=== PATIENT | male | born 1945 | race Caucasian/White ===

== ENCOUNTER 2023-03-23 14:54 | Outpatient (CLI) | payer MEDICARE, BC | END 2023-03-23 14:55 | disposition home or self-care (01) | LOC: CSHULT 14:54 | PROVIDERS: ATTEND Orthopaedic Surgery | DX: M79.604 Pain in right leg (principal); M79.605 Pain in left leg | CPT/HCPCS: 93970 ==

== ENCOUNTER 2023-05-05 09:43 | Outpatient (CLI) | payer MEDICARE | END 2023-05-05 09:44 | disposition home or self-care (01) | LOC: CSHWCC 09:43 | PROVIDERS: ATTEND Nurse Practitioner Family | DX: L89.624 Pressure ulcer of left heel, stage 4 (principal); R60.0 Localized edema; L24.A0 Irritant contact dermatitis due to friction or contact with body fluids, unspecified | CPT/HCPCS: 11042 ==

== ENCOUNTER 2023-06-09 11:13 | Outpatient (CLI) | payer MEDICARE | END 2023-06-09 11:14 | disposition home or self-care (01) | LOC: CSHWCC 11:13 | PROVIDERS: ATTEND Nurse Practitioner Family | DX: L89.624 Pressure ulcer of left heel, stage 4 (principal); R60.9 Edema, unspecified; L24.A0 Irritant contact dermatitis due to friction or contact with body fluids, unspecified | CPT/HCPCS: 11043 ==

== ENCOUNTER 2023-06-23 11:09 | Outpatient (CLI) | payer MEDICARE | END 2023-06-23 11:10 | disposition home or self-care (01) | LOC: CSHWCC 11:09 | PROVIDERS: ATTEND Nurse Practitioner Family | DX: L89.624 Pressure ulcer of left heel, stage 4 (principal); L24.A0 Irritant contact dermatitis due to friction or contact with body fluids, unspecified; R60.0 Localized edema ==

== ENCOUNTER 2023-07-07 11:16 | Outpatient (CLI) | payer MEDICARE | END 2023-07-07 11:17 | disposition home or self-care (01) | LOC: CSHWCC 11:16 | PROVIDERS: ATTEND Nurse Practitioner Family | DX: L89.624 Pressure ulcer of left heel, stage 4 (principal); R60.0 Localized edema | CPT/HCPCS: 11043; 97605 ==

== ENCOUNTER 2023-07-21 13:04 | Outpatient (CLI) | payer MEDICARE, BC | END 2023-07-21 13:05 | disposition home or self-care (01) | LOC: CSHWCC 13:04 | PROVIDERS: ATTEND Nurse Practitioner Family | DX: R60.9 Edema, unspecified (principal); L89.624 Pressure ulcer of left heel, stage 4 | CPT/HCPCS: 11042; 97605 ==

== ENCOUNTER 2023-08-04 14:58 | Outpatient (CLI) | payer MEDICARE | END 2023-08-04 14:59 | disposition home or self-care (01) | LOC: CSHWCC 14:58 | PROVIDERS: ATTEND Nurse Practitioner Family | DX: L89.624 Pressure ulcer of left heel, stage 4 (principal); R60.0 Localized edema | CPT/HCPCS: 97605 ==

== ENCOUNTER 2023-09-21 13:47 | Outpatient (CLI) | payer MEDICARE | END 2023-09-21 13:48 | disposition home or self-care (01) | LOC: CSHWCC 13:47 | PROVIDERS: ATTEND Physician Assistant | DX: L89.603 Pressure ulcer of unspecified heel, stage 3 (principal) | CPT/HCPCS: 97602 ==

== ENCOUNTER 2023-10-07 13:09 | Outpatient (CLI) | payer MEDICARE | END 2023-10-07 13:10 | disposition home or self-care (01) | LOC: CSHWCC 13:09 | PROVIDERS: ATTEND Physician Assistant | DX: L89.624 Pressure ulcer of left heel, stage 4 (principal) | CPT/HCPCS: 97597 ==

== ENCOUNTER 2023-10-27 13:14 | Outpatient (CLI) | payer MEDICARE | END 2023-10-27 13:15 | disposition home or self-care (01) | LOC: CSHWCC 13:14 | PROVIDERS: ATTEND Physician Assistant | DX: L89.624 Pressure ulcer of left heel, stage 4 (principal) | CPT/HCPCS: 97597 ==

== ENCOUNTER 2024-11-17 12:58 | Inpatient (IN) | payer MEDICARE ==
[2024-11-17] MEDS ORDERED: Famotidine/PF 20 mg/2ml Vial ONE (14:14)
[2024-11-17] MEDS ORDERED: methylPREDNISolone Sod Succ/PF 125 MG/2 ML VIAL ONE (14:14)
[2024-11-17 14:51] LABS: ALT (SGPT) 16 U/L (8-55); AST (SGOT) 18 U/L (5-34); Albumin 3.5 g/dL (3.4-4.8); Alkaline Phosphatase 83 U/L (40-110); Anion Gap 10 mmol/L (10-20); BUN (Urea Nitrogen) 22 mg/dL (8.4-25.7); Bilirubin, Total 0.4 mg/dL (0.2-1.2); Calc. Creatinine Clearance 0 mL/min (70-130); Calcium 9.6 mg/dL (7.8-10.44); Carbon Dioxide 26 mmol/L (23-31); Chloride 107 mmol/L (98-107); Estimated GFR 87; Globulin 3.1 g/dL (2.4-3.5); Glucose 85 mg/dL (83-110); Potassium 4.1 mmol/L (3.5-5.1); Protein, Total 6.6 g/dL (5.8-8.1); Sodium 139 mmol/L (136-145)
[2024-11-17] MEDS ORDERED: Piperacillin/Tazobactam 4.5 GM VIAL ONE (14:54)
[2024-11-17 15:17] LABS: #Basophils 0.07 10x3/uL (0.0-0.2); #Eosinophils 0.16 10x3/uL (0.0-0.5); #Monocytes 0.76 10x3/uL (0.0-1.1); #Neutrophils 10.41 10x3/uL (1.5-8.4); %Basophils 0.6 % (0.0-2.0); %Eosinophils 1.3 % (0.0-6.0); %Lymphocytes 7.1 % (18.0-47.0); %Monocytes 6.2 % (0.0-10.0); %Neutrophils 84.3 % (40.0-75.0); Hematocrit 33.5 % (38.8-50.0); Hemoglobin 11.7 g/dL (13.5-17.5); Mean Corpuscular HGB CONC 34.9 g/dL (32.0-36.0); Mean Corpuscular Hemoglobin 40.6 pg (27.0-33.0); Mean Corpuscular Volume 116.3 fL (81.2-95.1); Mean Platelet Volume 9.8 fL (7.4-10.4); Platelet Count 408 10x3/uL (150-450); RBC Distribution Width 14.1 % (11.5-14.5); Red Blood Cell (RBC) Count 2.88 10x6/uL (4.32-5.72); White Blood Cell (WBC) Count 12.3 10x3/uL (3.5-10.5)
[2024-11-17 18:33] VITALS: BMI 21.1
[2024-11-17] MEDS ORDERED: diphenhydrAMINE 25 MG CAP PO PRN (20:07)
[2024-11-17] MEDS ORDERED: Ondansetron ODT 4 MG TAB PO PRN (20:07)
[2024-11-17] MEDS ORDERED: Ondansetron PF 4 MG/2 ML Vial IVP PRN (20:07)
[2024-11-17] MEDS: Vancomycin HCl 125 MG Capsule PO SCH (21:21)
[2024-11-17] MEDS: Apixaban 5 MG TAB PO SCH (21:21)
[2024-11-17] MEDS: Acetaminophen 500 MG TAB PO SCH (21:22)
[2024-11-17] MEDS: diphenhydrAMINE 25 MG CAP PO SCH (21:22)
[2024-11-17] MEDS: Piperacillin/Tazobactam 3.375 GM in Sodium Chloride 0.9% 100 ML IVPB SCH (21:23)
[2024-11-17] MEDS: Hydroxyurea 500 MG CAP PO SCH (23:29)
[2024-11-17] MEDS: Clotrimazole 1% Cream 15 GM TUBE TOP SCH (23:46)
[2024-11-18] MEDS: Acetaminophen 325 MG TAB PO PRN (05:01)
[2024-11-18 05:37] LABS: Anion Gap 13 mmol/L (10-20); BUN (Urea Nitrogen) 21 mg/dL (8.4-25.7); Calc. Creatinine Clearance 59 mL/min (70-130); Calcium 9.4 mg/dL (7.8-10.44); Carbon Dioxide 23 mmol/L (23-31); Chloride 107 mmol/L (98-107); Estimated GFR 82; Glucose 138 mg/dL (83-110); Potassium 4.4 mmol/L (3.5-5.1); Sodium 139 mmol/L (136-145)
[2024-11-18 05:55] LABS: #Basophils 0.07 10x3/uL (0.0-0.2); #Eosinophils 0.01 10x3/uL (0.0-0.5); #Monocytes 0.44 10x3/uL (0.0-1.1); #Neutrophils 15.51 10x3/uL (1.5-8.4); %Basophils 0.4 % (0.0-2.0); %Eosinophils 0.1 % (0.0-6.0); %Lymphocytes 3.1 % (18.0-47.0); %Monocytes 2.6 % (0.0-10.0); Hematocrit 34.6 % (38.8-50.0); Hemoglobin 11.7 g/dL (13.5-17.5); Mean Corpuscular HGB CONC 33.8 g/dL (32.0-36.0); Mean Corpuscular Hemoglobin 38.5 pg (27.0-33.0); Mean Corpuscular Volume 113.8 fL (81.2-95.1); Mean Platelet Volume 9.8 fL (7.4-10.4); Platelet Count 442 10x3/uL (150-450); RBC Distribution Width 13.6 % (11.5-14.5); Red Blood Cell (RBC) Count 3.04 10x6/uL (4.32-5.72); White Blood Cell (WBC) Count 16.7 10x3/uL (3.5-10.5)
[2024-11-18] MEDS: Floranex 1 GM Packet PO SCH (09:16)
[2024-11-18] MEDS: Losartan 50 MG TAB PO SCH (09:17)
[2024-11-18] MEDS: Folic Acid 1 MG TAB PO SCH (09:18)
[2024-11-18] MEDS: Amlodipine 5 MG TAB PO SCH (09:18)
[2024-11-18] MEDS: Docusate 100 MG CAP PO SCH (09:18)
[2024-11-18] MEDS: Multivitamin W/ Minerals 1 TAB PO SCH (09:18)
[2024-11-18] MEDS: diphenhydrAMINE 25 MG CAP PO PRN (17:13)
[2024-11-19] MEDS: [UNRECOGNIZED DRUG - OTHER] PO SCH (07:30)
[2024-11-19] MEDS: IRON PS COMPLEX PO SCH (07:30)
[2024-11-19] MEDS: B12 PO SCH (07:30)
[2024-11-19 09:38] LABS: #Basophils 0.04 10x3/uL (0.0-0.2); #Eosinophils 0.31 10x3/uL (0.0-0.5); #Monocytes 0.74 10x3/uL (0.0-1.1); #Neutrophils 9.64 10x3/uL (1.5-8.4); %Basophils 0.3 % (0.0-2.0); %Eosinophils 2.6 % (0.0-6.0); %Lymphocytes 10.7 % (18.0-47.0); %Monocytes 6.1 % (0.0-10.0); %Neutrophils 79.6 % (40.0-75.0); Hematocrit 32.5 % (38.8-50.0); Hemoglobin 10.8 g/dL (13.5-17.5); Mean Corpuscular HGB CONC 33.2 g/dL (32.0-36.0); Mean Corpuscular Hemoglobin 38.7 pg (27.0-33.0); Mean Corpuscular Volume 116.5 fL (81.2-95.1); Mean Platelet Volume 9.6 fL (7.4-10.4); Platelet Count 355 10x3/uL (150-450); RBC Distribution Width 14.1 % (11.5-14.5); Red Blood Cell (RBC) Count 2.79 10x6/uL (4.32-5.72); White Blood Cell (WBC) Count 12.1 10x3/uL (3.5-10.5)
[2024-11-19 09:49] LABS: Anion Gap 13 mmol/L (10-20); BUN (Urea Nitrogen) 23 mg/dL (8.4-25.7); Calc. Creatinine Clearance 45 mL/min (70-130); Calcium 9.1 mg/dL (7.8-10.44); Carbon Dioxide 21 mmol/L (23-31); Chloride 106 mmol/L (98-107); Estimated GFR 59; Glucose 128 mg/dL (83-110); Potassium 4.4 mmol/L (3.5-5.1); Sodium 136 mmol/L (136-145)
[2024-11-19 15:02] VITALS: BMI 21.1
[2024-11-20 04:53] LABS: #Basophils 0.07 10x3/uL (0.0-0.2); #Eosinophils 0.27 10x3/uL (0.0-0.5); #Neutrophils 6.65 10x3/uL (1.5-8.4); %Basophils 0.8 % (0.0-2.0); %Eosinophils 2.9 % (0.0-6.0); %Lymphocytes 16.1 % (18.0-47.0); %Monocytes 7.6 % (0.0-10.0); %Neutrophils 71.8 % (40.0-75.0); Hematocrit 30.8 % (38.8-50.0); Hemoglobin 10.5 g/dL (13.5-17.5); Mean Corpuscular HGB CONC 34.1 g/dL (32.0-36.0); Mean Corpuscular Hemoglobin 39.3 pg (27.0-33.0); Mean Corpuscular Volume 115.4 fL (81.2-95.1); Mean Platelet Volume 9.6 fL (7.4-10.4); Platelet Count 326 10x3/uL (150-450); Red Blood Cell (RBC) Count 2.67 10x6/uL (4.32-5.72); White Blood Cell (WBC) Count 9.3 10x3/uL (3.5-10.5)
[2024-11-20 05:05] LABS: Anion Gap 12 mmol/L (10-20); BUN (Urea Nitrogen) 22 mg/dL (8.4-25.7); Calc. Creatinine Clearance 57 mL/min (70-130); Calcium 9.1 mg/dL (7.8-10.44); Carbon Dioxide 23 mmol/L (23-31); Chloride 109 mmol/L (98-107); Estimated GFR 78; Glucose 90 mg/dL (83-110); Potassium 4.1 mmol/L (3.5-5.1); Sodium 140 mmol/L (136-145)
[2024-11-21 04:24] LABS: Anion Gap 14 mmol/L (10-20); BUN (Urea Nitrogen) 21 mg/dL (8.4-25.7); Calc. Creatinine Clearance 60 mL/min (70-130); Calcium 9.1 mg/dL (7.8-10.44); Carbon Dioxide 22 mmol/L (23-31); Chloride 109 mmol/L (98-107); Estimated GFR 83; Glucose 84 mg/dL (83-110); Potassium 4.2 mmol/L (3.5-5.1); Sodium 141 mmol/L (136-145)
[2024-11-21 04:48] LABS: #Basophils 0.08 10x3/uL (0.0-0.2); #Eosinophils 0.22 10x3/uL (0.0-0.5); #Monocytes 0.73 10x3/uL (0.0-1.1); #Neutrophils 7.21 10x3/uL (1.5-8.4); %Basophils 0.8 % (0.0-2.0); %Eosinophils 2.2 % (0.0-6.0); %Lymphocytes 17.3 % (18.0-47.0); %Monocytes 7.3 % (0.0-10.0); %Neutrophils 71.6 % (40.0-75.0); Hemoglobin 10.7 g/dL (13.5-17.5); Mean Corpuscular HGB CONC 34.5 g/dL (32.0-36.0); Mean Corpuscular Hemoglobin 39.9 pg (27.0-33.0); Mean Corpuscular Volume 115.7 fL (81.2-95.1); Mean Platelet Volume 9.9 fL (7.4-10.4); Platelet Count 372 10x3/uL (150-450); Red Blood Cell (RBC) Count 2.68 10x6/uL (4.32-5.72); White Blood Cell (WBC) Count 10.1 10x3/uL (3.5-10.5)
[2024-11-21] MEDS: HYDROcodone/Acetaminophen 10/325 mg Tablet PO PRN (12:29)
[2024-11-22 04:33] LABS: #Basophils 0.08 10x3/uL (0.0-0.2); #Eosinophils 0.16 10x3/uL (0.0-0.5); #Neutrophils 7.34 10x3/uL (1.5-8.4); %Basophils 0.8 % (0.0-2.0); %Eosinophils 1.6 % (0.0-6.0); %Lymphocytes 14.4 % (18.0-47.0); %Monocytes 7.2 % (0.0-10.0); %Neutrophils 75.5 % (40.0-75.0); Hematocrit 30.7 % (38.8-50.0); Hemoglobin 10.6 g/dL (13.5-17.5); Mean Corpuscular HGB CONC 34.5 g/dL (32.0-36.0); Mean Corpuscular Volume 115.8 fL (81.2-95.1); Mean Platelet Volume 9.8 fL (7.4-10.4); Platelet Count 347 10x3/uL (150-450); RBC Distribution Width 14.3 % (11.5-14.5); Red Blood Cell (RBC) Count 2.65 10x6/uL (4.32-5.72); White Blood Cell (WBC) Count 9.7 10x3/uL (3.5-10.5)
[2024-11-22 04:44] LABS: Anion Gap 14 mmol/L (10-20); BUN (Urea Nitrogen) 20 mg/dL (8.4-25.7); Calc. Creatinine Clearance 58 mL/min (70-130); Calcium 9.2 mg/dL (7.8-10.44); Carbon Dioxide 22 mmol/L (23-31); Chloride 109 mmol/L (98-107); Estimated GFR 80; Glucose 85 mg/dL (83-110); Sodium 141 mmol/L (136-145)
[2024-11-22] MEDS: FLU (Fluad Triv) TS24-25 (65UP)/MF59C/PF 45 MCG/0.5 ML Syringe IM ONE (10:15)
[2024-11-22] MEDS: Loperamide HCl 2 MG CAP PO PRN (14:54)
[2024-11-22] MEDS: Pantoprazole DR 40 MG TAB PO SCH (21:59)
[2024-11-23 04:06] LABS: #Basophils 0.09 10x3/uL (0.0-0.2); #Eosinophils 0.15 10x3/uL (0.0-0.5); #Monocytes 0.67 10x3/uL (0.0-1.1); %Eosinophils 1.6 % (0.0-6.0); %Lymphocytes 17.1 % (18.0-47.0); %Monocytes 7.3 % (0.0-10.0); %Neutrophils 72.5 % (40.0-75.0); Hematocrit 30.5 % (38.8-50.0); Hemoglobin 10.2 g/dL (13.5-17.5); Mean Corpuscular HGB CONC 33.4 g/dL (32.0-36.0); Mean Corpuscular Hemoglobin 38.8 pg (27.0-33.0); Mean Platelet Volume 9.6 fL (7.4-10.4); Platelet Count 342 10x3/uL (150-450); RBC Distribution Width 13.9 % (11.5-14.5); Red Blood Cell (RBC) Count 2.63 10x6/uL (4.32-5.72); White Blood Cell (WBC) Count 9.1 10x3/uL (3.5-10.5)
[2024-11-23 04:19] LABS: Anion Gap 12 mmol/L (10-20); BUN (Urea Nitrogen) 17 mg/dL (8.4-25.7); Calc. Creatinine Clearance 63 mL/min (70-130); Carbon Dioxide 22 mmol/L (23-31); Chloride 109 mmol/L (98-107); Estimated GFR 87; Glucose 86 mg/dL (83-110); Potassium 3.9 mmol/L (3.5-5.1); Sodium 139 mmol/L (136-145)
[2024-11-23] MEDS: Cholestyramine/Aspartame 4 gm Packet PO SCH (04:52)
[2024-11-23 12:16] VITALS: BP 133/61; TEMP 98.9
== END 2024-11-23 18:19 | disposition home or self-care (01) | DRG 607 ==
LOC: CSHERS 12:58 → CSHTELE 17:17 → OBSVTOIN 11-19 09:54
PROVIDERS: ADMIT Internal Medicine; ATTEND Internal Medicine
DX: R21 Rash and other nonspecific skin eruption (principal); D68.59 Other primary thrombophilia; Z96.652 Presence of left artificial knee joint; B35.6 Tinea cruris; Z74.09 Other reduced mobility; I27.20 Pulmonary hypertension, unspecified; D69.1 Qualitative platelet defects; Z96.659 Presence of unspecified artificial knee joint; N40.0 Benign prostatic hyperplasia without lower urinary tract symptoms; T36.1X5A Adverse effect of cephalosporins and other beta-lactam antibiotics, initial encounter; D53.9 Nutritional anemia, unspecified; Z85.46 Personal history of malignant neoplasm of prostate; Z79.01 Long term (current) use of anticoagulants; Z86.711 Personal history of pulmonary embolism; Z99.3 Dependence on wheelchair; Z86.19 Personal history of other infectious and parasitic diseases; Z86.73 Personal history of transient ischemic attack (TIA), and cerebral infarction without residual deficits
CPT/HCPCS: 36415; 76937; 80048; 80053; 82607; 83735; 85025; 86140; 96365; 96375; 96376; 97139; G0378; J2543; J2919; J3490

== ENCOUNTER 2025-01-10 16:25 | Outpatient (CLI) | payer MEDICARE | END 2025-01-10 16:26 | disposition home or self-care (01) | LOC: CSHWCC 16:25 | PROVIDERS: ATTEND Nurse Practitioner Family | DX: L89.523 Pressure ulcer of left ankle, stage 3 (principal) | CPT/HCPCS: 11042; 11045; 87070; 87077; 87186; 87205; 99212; G0463 ==

== ENCOUNTER 2025-06-13 14:44 | Outpatient (CLI) | payer MEDICARE | END 2025-06-13 14:45 | disposition home or self-care (01) | LOC: CSHWCC 14:44 | PROVIDERS: ATTEND Nurse Practitioner Family | DX: I87.312 Chronic venous hypertension (idiopathic) with ulcer of left lower extremity (principal); L97.322 Non-pressure chronic ulcer of left ankle with fat layer exposed; R26.2 Difficulty in walking, not elsewhere classified; Z89.522 Acquired absence of left knee | CPT/HCPCS: 11042; G0463; 99212 ==

== ENCOUNTER 2025-06-20 15:16 | Outpatient (CLI) | payer MEDICARE | END 2025-06-20 15:17 | disposition home or self-care (01) | LOC: CSHWCC 15:16 | PROVIDERS: ATTEND Nurse Practitioner Family | DX: I87.312 Chronic venous hypertension (idiopathic) with ulcer of left lower extremity (principal); L97.322 Non-pressure chronic ulcer of left ankle with fat layer exposed; R26.2 Difficulty in walking, not elsewhere classified; Z89.522 Acquired absence of left knee | CPT/HCPCS: 11042 ==

== ENCOUNTER 2025-06-27 14:54 | Outpatient (CLI) | payer MEDICARE | END 2025-06-27 14:55 | disposition home or self-care (01) | LOC: CSHWCC 14:54 | PROVIDERS: ATTEND Nurse Practitioner Family | DX: I87.312 Chronic venous hypertension (idiopathic) with ulcer of left lower extremity (principal); L97.322 Non-pressure chronic ulcer of left ankle with fat layer exposed; R26.2 Difficulty in walking, not elsewhere classified; Z89.522 Acquired absence of left knee | CPT/HCPCS: 11042; 99212; G0463 ==

== ENCOUNTER 2025-07-04 15:44 | Outpatient (CLI) | payer MEDICARE | END 2025-07-04 15:45 | disposition home or self-care (01) | LOC: CSHWCC 15:44 | PROVIDERS: ATTEND Nurse Practitioner Family | DX: I87.312 Chronic venous hypertension (idiopathic) with ulcer of left lower extremity (principal); L97.322 Non-pressure chronic ulcer of left ankle with fat layer exposed; L08.9 Local infection of the skin and subcutaneous tissue, unspecified; R26.2 Difficulty in walking, not elsewhere classified; Z89.522 Acquired absence of left knee | CPT/HCPCS: 11042; G0463; 99212 ==

== ENCOUNTER 2025-07-18 14:52 | Outpatient (CLI) | payer MEDICARE | END 2025-07-18 14:53 | disposition home or self-care (01) | LOC: CSHWCC 14:52 | PROVIDERS: ATTEND Nurse Practitioner Family | DX: L89.622 Pressure ulcer of left heel, stage 2 (principal); I87.312 Chronic venous hypertension (idiopathic) with ulcer of left lower extremity; L97.322 Non-pressure chronic ulcer of left ankle with fat layer exposed; R26.2 Difficulty in walking, not elsewhere classified; Z89.522 Acquired absence of left knee | CPT/HCPCS: 11042; 99214; G0463 ==

== ENCOUNTER 2025-07-26 14:45 | Outpatient (CLI) | payer MEDICARE | END 2025-07-26 14:46 | disposition home or self-care (01) | LOC: CSHWCC 14:45 | PROVIDERS: ATTEND Nurse Practitioner Family | DX: L89.622 Pressure ulcer of left heel, stage 2 (principal); I87.312 Chronic venous hypertension (idiopathic) with ulcer of left lower extremity; L97.322 Non-pressure chronic ulcer of left ankle with fat layer exposed; R26.2 Difficulty in walking, not elsewhere classified; Z89.522 Acquired absence of left knee | CPT/HCPCS: 11042 ==

== ENCOUNTER 2025-08-01 14:54 | Outpatient (CLI) | payer MEDICARE | END 2025-08-01 14:55 | disposition home or self-care (01) | LOC: CSHWCC 14:54 | PROVIDERS: ATTEND Nurse Practitioner Family | DX: L89.622 Pressure ulcer of left heel, stage 2 (principal); I87.312 Chronic venous hypertension (idiopathic) with ulcer of left lower extremity; L97.322 Non-pressure chronic ulcer of left ankle with fat layer exposed; R26.2 Difficulty in walking, not elsewhere classified; Z89.522 Acquired absence of left knee | CPT/HCPCS: 11042 ==

== ENCOUNTER 2025-08-08 14:44 | Outpatient (CLI) | payer MEDICARE | END 2025-08-08 14:45 | disposition home or self-care (01) | LOC: CSHWCC 14:44 | PROVIDERS: ATTEND Nurse Practitioner Family | DX: I87.312 Chronic venous hypertension (idiopathic) with ulcer of left lower extremity (principal); L97.322 Non-pressure chronic ulcer of left ankle with fat layer exposed; R26.2 Difficulty in walking, not elsewhere classified; Z89.522 Acquired absence of left knee | CPT/HCPCS: 99212; G0463 ==

== ENCOUNTER 2025-08-15 14:44 | Outpatient (CLI) | payer MEDICARE | END 2025-08-15 14:45 | disposition home or self-care (01) | LOC: CSHWCC 14:44 | PROVIDERS: ATTEND Nurse Practitioner Family | DX: L89.892 Pressure ulcer of other site, stage 2 (principal); I87.312 Chronic venous hypertension (idiopathic) with ulcer of left lower extremity; L97.322 Non-pressure chronic ulcer of left ankle with fat layer exposed; R26.2 Difficulty in walking, not elsewhere classified; Z89.522 Acquired absence of left knee | CPT/HCPCS: 11042; G0463; 99213 ==

== ENCOUNTER 2025-09-05 14:41 | Outpatient (CLI) | payer MEDICARE | END 2025-09-05 14:42 | disposition home or self-care (01) | LOC: CSHWCC 14:41 | PROVIDERS: ATTEND Nurse Practitioner Family | DX: L89.892 Pressure ulcer of other site, stage 2 (principal); I87.312 Chronic venous hypertension (idiopathic) with ulcer of left lower extremity; L97.929 Non-pressure chronic ulcer of unspecified part of left lower leg with unspecified severity; R26.2 Difficulty in walking, not elsewhere classified; Z89.522 Acquired absence of left knee | CPT/HCPCS: 97597 ==

== ENCOUNTER 2025-09-14 14:04 | Outpatient (CLI) | payer MEDICARE | END 2025-09-14 14:05 | disposition home or self-care (01) | LOC: CSHWCC 14:04 | PROVIDERS: ATTEND Nurse Practitioner Family | DX: L89.892 Pressure ulcer of other site, stage 2 (principal); I87.312 Chronic venous hypertension (idiopathic) with ulcer of left lower extremity; L97.929 Non-pressure chronic ulcer of unspecified part of left lower leg with unspecified severity; R26.2 Difficulty in walking, not elsewhere classified; Z89.522 Acquired absence of left knee | CPT/HCPCS: 99212; G0463 ==